=== PATIENT | male | born 1960 | race Caucasian/White ===

== ENCOUNTER 2025-03-07 09:26 | Outpatient (CLI) | payer MEDICARE | END 2025-03-07 09:27 | disposition home or self-care (01) | LOC: CSHSLEEP 09:26 | DX: G47.33 Obstructive sleep apnea (adult) (pediatric) (principal); R53.83 Other fatigue; G25.89 Other specified extrapyramidal and movement disorders; R51.9 Headache, unspecified; F32.A Depression, unspecified; F41.9 Anxiety disorder, unspecified; K21.9 Gastro-esophageal reflux disease without esophagitis; R35.1 Nocturia | CPT/HCPCS: 95800 ==